=== PATIENT | male | born 1990 | race Caucasian/White ===

== ENCOUNTER 2019-03-11 12:43 | Emergency (ER) | payer OTHER ==
[~2019-03-11] VITALS: Ht 167.6 cm; Wt 78.0 kg
[2019-03-11] MEDS ORDERED: FAMOTIDINE 20 MG TABLET PO ONE (13:15)
[2019-03-11] MEDS ORDERED: LORazepam 1 MG TABLET PO ONE (13:15)
--- NOTE | 2019-03-11 14:07 | ED.ADGEN ---
Past History Past Medical History: No Pertinent History Past Surgical History: Appendectomy Additional Smoking Information: VAPES Alcohol Use: Heavy Additional Alcohol Information: DRINKS EVERY DAY Drug Use: None Adult General Chief Complaint Chief Complaint Chest pressure HPI HPI Patient is a 28-year-old male who presents with intermittent chest pressure while at rest 2 weeks. 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 Patient reports pressure, palpitations and dizziness. No nausea vomiting or sweats. Denies radiation migration. Symptoms are intermittent. No abdominal pain. No cough sore throat or neck pain No other acute symptoms or complaints. No medications or therapy sticking prior to ED arrival. Denies history of dysrhythmia. No chronic medical conditions. Patient is nonsmoker and does not have any traditional cardiac risk factors.[] Review of Systems Review of Systems Review symptoms as per history of present illness. All other review symptoms are negative. All other systems were reviewed and found to be within normal limits, except as documented in this note. Current Medications Current Medications Current Medications Medications (Trade) Dose Ordered Sig/Leoncio Start Time Stop Time Status Last Admin Dose Admin Famotidine (Pepcid) 20 mg 1X ONCE 03/11/19 13:15 03/11/19 13:21 DC 03/11/19 13:25 20 MG Lorazepam (Ativan) 1 mg 1X ONCE 03/11/19 13:15 03/11/19 13:21 DC 03/11/19 13:25 1 MG Allergies Allergies Allergies Coded Allergies Type Severity Reaction Last Updated Verified No Known Drug Allergies 03/11/19 No Physical Exam Physical Exam Constitutional: Well developed, well nourished, no acute distress, anxiety. [] HENT: Normocephalic, atraumatic, bilateral external ears normal, oropharynx moist, no oral exudates, nose normal. [] Eyes: PERRLA, EOMI, conjunctiva normal, no discharge. [] Neck: Normal range of motion, no tenderness, supple, no stridor. [] Cardiovascular:Heart rate regular rhythm, no murmur [] Lungs & Thorax: Bilateral breath sounds clear to auscultation [] Abdomen: Bowel sounds normal, soft, no tenderness. [] Skin: Warm, dry, no erythema, no rash. [] Back: No tenderness, no CVA tenderness. [] Extremities: No tenderness, no edema. [] Neurologic: Alert and oriented X 3, normal motor function, normal sensory function, no focal deficits noted. [] Psychologic: Affect normal, judgement normal, mood normal. [] Current Patient Data Vital Signs Vital Signs Date Time Temp Pulse Resp B/P (MAP) Pulse Ox O2 Delivery O2 Flow Rate FiO2 03/11/19 12:58 98.6 96 14 96 Room Air EKG EKG [EKG: Reviewed normal sinus rhythm. No acute ST changes..] Radiology/Procedures Radiology/Procedures [] Course & Med Decision Making Course & Med Decision Making Pertinent Labs and Imaging studies reviewed. (See chart for details) [Pepcid and Ativan given. Patient connected to monitor. No arrhythmias or PVCs. EKG nondiagnostic. Recommend supportive care with PCP follow-up. Patient verbalizes understanding. Discharge instructions prior to departure.] Final Impression Final Impression [] Dragon Disclaimer Dragon Disclaimer This electronic medical record was generated, in whole or in part, using a voice recognition dictation system. FELICITAS RAM DO Mar 11, 2019 14:07
[2019-03-11] MEDS ORDERED: FAMO-63 PO (14:09)
[2019-03-11] MEDS ORDERED: LORA-254 PO ×2 (14:09→14:12)
[2019-03-11 14:40] VITALS: BP 168/48
--- NOTE | 2019-03-11 15:40 | EKG ---
[address] [address] Test Date: 2019-03-11 Test Time: 12:51:19 Pat Name: KOFFI SCHOFIELD Department: Room: Gender: M [employer] Tender: WALDEMAR : 1990 Requested By: FELICITAS RAM Order Number: [id number] Reading MD: Measurements Intervals [place] Rate: 88 P: 62 TN: 156 QRS: 26 QRSD: 102 T: 21 QT: 364 QTc: 444 Interpretive Statements SINUS ARRHYTHMIA QRS(T) CONTOUR ABNORMALITY CONSIDER INFERIOR MYOCARDIAL DAMAGE POSSIBLY ABNORMAL ECG RI6.01 No previous ECG available for comparison
== END 2019-03-11 14:40 | disposition home or self-care (01) ==
LOC: ER 12:43
DX: R07.89 Other chest pain (principal); R00.2 Palpitations; R42 Dizziness and giddiness; F17.200 Nicotine dependence, unspecified, uncomplicated; F10.20 Alcohol dependence, uncomplicated; Y90.9 Presence of alcohol in blood, level not specified
CPT/HCPCS: 93005; 99284